=== PATIENT | female | born 1985 | race Caucasian/White ===

== ENCOUNTER 2018-01-17 19:53 | Emergency (ER) | payer MEDICAID ==
[~2018-01-17] VITALS: Ht 165.1 cm; Wt 102.6 kg
[~2018-01-17 19:53] MED LIST: IBUP-2230 PO
[2018-01-17 19:56] VITALS: BP 141/81
[2018-01-17] MEDS ORDERED: AMOX500C25 PO (20:10)
[2018-01-17] MEDS ORDERED: SILVER NITRATE APPLICATOR 1 EA SWAB TP ONE ×2 (21:49→22:41)
[2018-01-17] MEDS ORDERED: LIDOCAINE/EPI 2% 1:100000 20 ML VIAL INJ ONE (22:40)
[2018-01-17] MEDS: LIDOCAINE/EPI MPF 2%1:200000 10 ML VIAL INJ ONE (22:44)
[2018-01-17 23:09] VITALS: BP 133/91
== END 2018-01-17 23:06 | disposition home or self-care (01) ==
LOC: MED 19:53
DX: K08.89 Other specified disorders of teeth and supporting structures (principal); Z79.899 Other long term (current) drug therapy
CPT/HCPCS: 99281; J2001

== ENCOUNTER 2018-09-11 06:55 | Emergency (ER) | payer MEDICAID ==
[~2018-09-11] VITALS: Ht 167.6 cm; Wt 102.1 kg
[~2018-09-11 06:55] MED LIST changes: +AMOX500C25 PO
[2018-09-11 07:00] VITALS: BP 128/68
[2018-09-11 07:48] VITALS: BP 128/68
== END 2018-09-11 07:48 | disposition home or self-care (01) ==
LOC: MED 06:55
DX: L02.31 Cutaneous abscess of buttock (principal); L03.317 Cellulitis of buttock; Z79.899 Other long term (current) drug therapy
CPT/HCPCS: 81002; 81025; 99283

== ENCOUNTER 2020-06-30 04:55 | Emergency (ER) | payer MEDICAID ==
[~2020-06-30] VITALS: Ht 167.6 cm; Wt 106.6 kg
[2020-06-30 05:01] VITALS: BP 119/60
--- NOTE | 2020-06-30 05:05 | NUR ---
To ED bed 04
--- NOTE | 2020-06-30 05:18 | NUR ---
PT HIT HER 4TH TOE ON HER BEDPOST LAST NIGHT AROUND 10PM. TOE IS SWOLLEN AND BRUISED. UNABLE TO MOVE TOE AND STATES PAIN RADIATES INTO HER FOOT AND UP TO HER KNEE. ABLE TO MOVE OTHER TOES, NO SWELLING TO FOOT, PALPABLE PEDAL PULSE. NO DEFORMITY NOTED. BED IN LOWEST POSITION, LOCKED, AND SIDERAIL UP X 1. NKA NO HX
[2020-06-30] MEDS ORDERED: IBUPROFEN 800 MG TAB PO ONE (05:20)
--- NOTE | 2020-06-30 05:40 | NUR ---
PT 3RD AND 4TH TOE WRAPPED WITH ISREAL TAPE, ORTHOPEDIC SHOE PLACED ON PT L FOOT
[2020-06-30 06:05] VITALS: BP 119/60
== END 2020-06-30 06:06 | disposition home or self-care (01) ==
LOC: MED 04:55
DX: S92.912A Unspecified fracture of left toe(s), initial encounter for closed fracture (principal); Z79.899 Other long term (current) drug therapy; X58.XXXA Exposure to other specified factors, initial encounter; Y93.89 Activity, other specified; Y92.89 Other specified places as the place of occurrence of the external cause; Y99.8 Other external cause status
CPT/HCPCS: 73630; 99283; Q0092

== ENCOUNTER 2020-11-11 12:09 | Emergency (ER) | payer MEDICAID ==
[~2020-11-11] VITALS: Ht 175.3 cm; Wt 103.4 kg
[2020-11-11 12:15] VITALS: BP 132/81
--- NOTE | 2020-11-11 12:49 | NUR ---
PT AMBULATED TO BED 06.
--- NOTE | 2020-11-11 12:57 | NUR ---
35 Y/O FEMAL BIB SELF C/O DISCOMFORT ON LEFT SIDE OF HEAD X 3 DAYS. PT DESCRIBES FEELING "LIKE MY VEIN IS MOVING. ALMOST LIKE A WORM". PT STATES SHE WAS ADVISED TO COME TO ER BY PRIMARY TO RULE-OUT STOKE. NO OPEN WOUND NOTED ON HEAD; SKIN INTACT, NORMAL COLOR, NORMAL TEMPERATURE, NO DRAINAGE. PT DENIES PAIN, LOC, TRAUMA TO HEAD, FALL. STATES INCREASED STRESS AND ANXIETY. PERRLA. SYMMETRICAL FACIAL FEATURES AND BILATERAL STRENGTH NOTED; NO FACIAL DROOPING OR UNILATERAL WEAKNESS NOTED. SPEECH CLEAR. AO4, BREATHING EVEN AND UNLABORED, SKIN WARM AND DRY. BED IN LOWEST POSITION, LOCKED, X1 SIDERAIL UP. PMH - MIGRAINES NKA
--- NOTE | 2020-11-11 13:10 | NUR ---
DR BUENO IS EVALUATING PT AT BEDSIDE.
--- NOTE | 2020-11-11 13:25 | NUR ---
Patient discharged with v/s stable. Written and verbal after care instructions ABOUT MEDICAL SCREENING EXAM given and explained. Patient verbalized understanding. Ambulatory with steady gait. All questions addressed prior to discharge. Advised to follow up with PMD.
[2020-11-11 13:26] VITALS: BP 132/81
== END 2020-11-11 13:25 | disposition home or self-care (01) ==
LOC: MED 12:09
DX: R51.9 Headache, unspecified (principal); Z00.01 Encounter for general adult medical examination with abnormal findings; Z79.899 Other long term (current) drug therapy
CPT/HCPCS: 99281

== ENCOUNTER 2022-04-01 12:53 | Emergency (ER) | payer MEDICAID ==
[~2022-04-01] VITALS: Ht 160 cm; Wt 105.7 kg
[2022-04-01 13:16] VITALS: BP 123/60
--- NOTE | 2022-04-01 13:20 | NUR ---
36 Y/O FEMALE C/O OF LEFT EAR PAIN AND LEFT SIDED HAX 3DAYS, DENIES ANY NAUSEA, VOMITING, DENIES ANY BLURRING OF VISION NKA PMH: DENIES
--- NOTE | 2022-04-01 13:30 | NUR ---
SEEN BY CATHI WILKINS
[2022-04-01] MEDS ORDERED: OFLO5SOL27 LEFT EAR ×2 (13:39→13:40)
[2022-04-01] MEDS ORDERED: ACETAMINOPHEN EXTRA STRENGTH 500 MG TAB PO ONE (13:40)
[2022-04-01 14:10] VITALS: BP 118/72
--- NOTE | 2022-04-01 14:10 | NUR ---
Patient discharged with v/s stable. Written and verbal after care instructions given and explained. Patient alert, oriented and verbalized understanding of instructions. Ambulatory with steady gait. All questions addressed prior to discharge. ID band removed. Patient advised to follow up with PMD. Rx of FLOXIN OT given. Patient educated on indication of medication including possible reaction and side effects. Opportunity to ask questions provided and answered.
== END 2022-04-01 14:10 | disposition home or self-care (01) ==
LOC: MED 12:53
DX: H60.92 Unspecified otitis externa, left ear (principal)
CPT/HCPCS: 99283